=== PATIENT | female | born 1985 | race Caucasian/White ===

== ENCOUNTER 2019-07-28 22:03 | Emergency (ER) | payer SELFPAY ==
[~2019-07-28] VITALS: Ht 172.7 cm; Wt 57.7 kg
[2019-07-28 22:11] VITALS: Ht 172.7 cm; Wt 57.7 kg
[2019-07-28] MEDS ORDERED: ALBUTEROL SULF8.5 GM INH ×2 (22:12→22:53)
[2019-07-28] MEDS ORDERED: XARELTO20 MG PO (22:12)
[2019-07-28] MEDS ORDERED: PROVIGIL200 MG PO ×2 (22:12→22:53)
[2019-07-28] MEDS ORDERED: FLUTICASONE PRO16 GM NASAL (22:53)
[2019-07-28 23:00] VITALS: BP 125/89
== END 2019-07-28 23:00 | disposition home or self-care (01) ==
LOC: D.ER 22:03
DX: B34.9 Viral infection, unspecified (principal); J45.909 Unspecified asthma, uncomplicated